=== PATIENT | male | born 1975 | race Hispanic/Latino ===

== ENCOUNTER 2021-11-13 15:29 | Emergency (ER) | payer OTHER ==
[~2021-11-13] VITALS: Ht 177.8 cm; Wt 83.9 kg
[~2021-11-13 15:29] MED LIST: TAMS-1 PO; TYL3B PO; no medications
[2021-11-13] MEDS ORDERED: KETOROLAC 30MG VIAL (30MG/ML) IM ONE (16:00)
[2021-11-13 20:00] VITALS: BP 139/88
== END 2021-11-13 19:59 | disposition home or self-care (01) ==
LOC: EDH 15:29
DX: S93.602A Unspecified sprain of left foot, initial encounter (principal); X58.XXXA Exposure to other specified factors, initial encounter; Y93.89 Activity, other specified; Y92.89 Other specified places as the place of occurrence of the external cause; Y99.8 Other external cause status
CPT/HCPCS: 73630; 96372; 99283; J1885

== ENCOUNTER 2025-03-31 03:31 | Observation (INO) | payer OTHER ==
[~2025-03-31] VITALS: Ht 177.8 cm; Wt 90.7 kg
[2025-03-31] MEDS: LACTATED RINGERS 1000ML 1,000 ML IV ONE (03:49)
[2025-03-31 03:52] LABS: IMMATURE GRANULOCYTE ABSOLUTE 0.01 K/uL (0-1); NUCLEATED RED BLOOD CELLS 0.0 % (0.0-0.19); PLATELET COUNT (AUTO) 207 K/uL (130-400); RED BLOOD CELL COUNT(AUTO) 6.04 MIL/uL (4.50-6.20); RED CELL DISTRIBUTION WIDTH 15.1 % (11.0-15.5); WHITE BLOOD COUNT (AUTO) 6.5 K/uL (4.8-10.8)
--- NOTE | 2025-03-31 03:52 | ERN ---
ED Note History of Present Illness Stated Complaint: C/O LEFT FLANK PAIN Chief Complaint: Flank Pain Time Seen by MD: 03:34 Dictation: This is a 50-year-old male with known history of nephrolithiasis comes into the emergency room with severe left flank pain that started about an hour ago. He stated that he was profusely sweaty with a excruciating left-sided pain and he knew similar kind of pain with his previous kidney stones and hence came in for evaluation. No fever chills or rigors. No obvious hematuria. He has had kidney stone since 2014 and 1 such episode required surgical intervention and retrieval of the stones Temperature 96 pulse 83 respirations 20 blood pressure 142/99 with a pulse oximetry of 97% on room air Previous problems include history of lumbar fusion and kidney stones Allergies: Coded Allergies: No Known Allergies (Unverified Allergy, Unknown, 06/22/14) Home Meds Active Scripts Tamsulosin HCl (Flomax) 0.4 Mg Cap.er.24h, 1 CAP PO DAILY for 10 Days, #10 CAP 0 Refills Prov:KANDI GALLO MD 03/31/25 Acetaminophen with Codeine (Acetaminophen with Codeine #3 Tablet) 1 Tab Tab, 1-2 TAB PO [id number], #25 TAB Prov:JESE HERNANDEZ MD 06/25/14 Tamsulosin HCl (Flomax) 0.4 Mg/Cap Cap.er.24h, 0.4 MG PO DAILY, #30 CAPSULE.DR Prov:JESE HERNANDEZ MD 06/25/14 Reported Medications [no medications] No Conflict Check 06/22/14 Past Medical History Past Medical History: Other Additional Past Medical Hx: HX OF KIDNEY STONES Surgical History: Other Surgical History Other: LUMBAR FUSION Family History: Negative RN Note Reviewed/Agreed w/PFSH: Yes Review of System Dictation Constitutional: Negative for fever,chills, and weight loss Eyes: Negative for injury, pain,redness, and discharge ENT: Negative for injury,pain or swelling Cardiovascular: Negative for chest pain, palpitations, and edema Respiratory: Negative for shortness of breath, cough, and wheezing, Abdomen/GI: Negative for abdominal pain, nausea, vomiting, diarrhea, and constipation Back: Negative for injury and pain : Negative for injury, bleeding and discharge positive for left flank pain MS/Extremity: Negative for injury and deformity Skin: Negative for rash, and discoloration Neuro: Negative for headache, weakness, numbness, tingling, and seizure Psych: Negative for suicide ideation, homicidal ideation, and hallucinations Initial Vital Sign VS Vital Signs Date Time Temp Pulse Resp B/P (MAP) Pulse Ox O2 Delivery O2 Flow Rate FiO2 03/31/25 03:32 96.1 83 20 142/99 97 Room Air 03/31/25 06:35 0 21 Physical Exam Dictation General: awake, alert, NAD Head/Face: Normocephalic, atraumatic Eyes: PERRL, EOMI, vision at baseline ENT: oral cavity clear, TMs clear, no signs of infection Neck: Trachea midline, supple, no nuchal rigidity Cardiovascular: RRR, normal S1/S2, No MRGs, no JVD Respiratory: CTAB, no respiratory distress, No rales or wheezes Abdomen: Soft, non-tender, non-distended, normal bowel sounds, no guarding or rebound. Skin: Warm, dry, normal turgor, no rash MS/Extremity: Pulses equal, no cyanosis, neurovascular intact, FROM Neuro: COAx4, GCS 15, strength 5/5, CN 2-12 intact, normal cerebellar exam, normal gait, Psych: Normal behavior, mood, and affect normal Extremities-trace edema without any palpable cords, Homans sign is negative Results (Laboratory/Radiology) Laboratory/Radiology Laboratory Tests Test 03/31/25 03:46 03/31/25 05:55 White Blood Count 6.5 K/uL (4.8-10.8) Red Blood Count 6.04 MIL/uL (4.50-6.20) Hemoglobin 15.0 g/dL (14.0-18.0) Hematocrit 47.5 % (42-54) Mean Corpuscular Volume 78.6 fL (79-99) L Mean Corpuscular Hemoglobin 24.8 pg (27.0-33.0) L Mean Corpuscular Hemoglobin Concent 31.6 g/dL (32.0-36.0) L Red Cell Distribution Width 15.1 % (11.0-15.5) Platelet Count 207 K/uL (130-400) Mean Platelet Volume 10.7 fL (7.5-10.5) H Immature Granulocyte % (Auto) 0.2 % (0-1) Neutrophils (%) (Auto) 53.7 % (40.0-77.0) Lymphocytes (%) (Auto) 29.1 % (21.0-51.0) Monocytes (%) (Auto) 11.0 % (3.0-13.0) Eosinophils (%) (Auto) 5.1 % (0.0-8.0) Basophils (%) (Auto) 0.9 % (0.0-5.0) Neutrophils # (Auto) 3.5 K/uL (1.8-7.7) Lymphocytes # (Auto) 1.9 K/uL (1.0-4.8) Monocytes # (Auto) 0.7 K/uL (0.1-1.0) Eosinophils # (Auto) 0.33 K/uL (0.00-0.70) Basophils # (Auto) 0.06 K/uL (0.00-0.20) Absolute Immature Granulocyte (auto 0.01 K/uL (0-1) Nucleated Red Blood Cells 0.0 % (0.0-0.19) Red Blood Cell Morphology See comments Sodium Level 140 mmol/L (136-145) Potassium Level 3.9 mmol/L (3.5-5.1) Chloride Level 105 mmol/L (101-111) Carbon Dioxide Level 26 mmol/L (21-32) Blood Urea Nitrogen 18 mg/dL (7-18) Creatinine 1.3 mg/dL (0.5-1.3) Glomerular Filtration Rate Calc 67 mL/min (>90) Random Glucose 142 mg/dL (70-105) H Total Calcium 8.9 mg/dL (8.5-10.1) Urine Color COLORLESS (YELLOW) Urine Appearance CLEAR (CLEAR) Urine pH 6.0 (5.0-8.0) Urine Specific [place] 1.015 (1.001-1.031) Urine Protein NEGATIVE mg/dL (NEGATIVE) Urine Glucose (UA) NEGATIVE mg/dL (NEGATIVE) Urine Ketones NEGATIVE mg/dL (NEGATIVE) Urine Occult Blood LARGE (NEGATIVE) H Urine Nitrate NEGATIVE (NEGATIVE) Urine Bilirubin NEGATIVE mg/dL (NEGATIVE) Urine Urobilinogen 0.2 mg/dL (0.2-1.0) Urine Leukocyte Esterase NEGATIVE [place]/uL Urine RBC 51-100 /HPF (0-1) H Urine WBC 0-1 /HPF (0-1) Urine Bacteria None /HPF (None Seen) Labs Reviewed?: Yes CT Scan Comment: REASON: renal colic left side? ORDERING PHYSICIAN: KANDI GALLO MD PROCEDURE: ABD PELVWO - CT ABD/PEL WO CON RENAL/APPY EXAM: CT Abdomen and Pelvis without IV contrast CLINICAL HISTORY: Renal colic on the left side. TECHNIQUE: Thin collimated axial CT images of the abdomen and pelvis were obtained, with sagittal and coronal reformatted images also submitted. A CT scan is done according to ALARA (As Low As Reasonably Achievable). CONTRAST: None. COMPARISON: CT abdominal pelvis dated 06/24/2014. FINDINGS: Unremarkable visualized lung parenchyma. No focal abnormality within the gallbladder, pancreas, spleen, or adrenals. 0.6 cm hypodense cystic structure in segment 6 of the liver. There are a few nonobstructive renal calculi bilaterally, the largest measures up to 0.4 cm around the left renal midpole. 0.3 cm calculus around the distal third of the left ureter with subtle fullness in the left ureter and renal collecting system proximal to this calculus. There is no obvious bowel wall thickening. Bowel loops are normal in caliber without obstruction or ileus. The appendix is normal. There is no abnormality within the urinary bladder. Unremarkable reproductive organs. Limited evaluation of the abdominal vessels due to the lack of intravenous contrast. No abdominal aortic aneurysm is evident. There is a 1.4 x 1.5 cm enlarged retroperitoneal lymph node posterior to the inferior vena cava at the level of the right renal vein. No free fluid. No pneumoperitoneum. There is no acute osseous abnormality. Degenerative osseous changes. Postsurgical changes, posterior fixation hardware, and an intervertebral disc spacer at L4-L5. Small, uncomplicated, fat-containing inguinal hernias bilaterally. IMPRESSIONS: 0.3 cm calculus around the distal third of the left ureter with subtle fullness in the left ureter and renal collecting system proximal to this calculus. This is a new finding compared to the previous CT. There are a few non-obstructive renal calculi bilaterally. Interval decrease in size of the renal calculi but an increase in the number of the renal calculi compared to the previous CT dated 06/24/2014. 0.6 cm hypodense cystic structure in segment 6 of the liver. A new finding. There is a 1.4 x 1.5 cm enlarged retroperitoneal lymph node posterior to the inferior vena cava at the level of the right renal vein. It is unchanged compared to the previous CT. Small, uncomplicated, fat-containing inguinal hernias bilaterally with interval worsening /[place] DICTATED BY: JULIANNE JAFFE Jr., MD DATE: 03/31/25538 ELECTRONICALLY SIGNED BY: JULIANNE JAFFE Jr., MD ED Course ED Course Orders Procedure Category Date Status Time Vital Signs Per CPOE 03/31/25 Transmitted Routine 03:35 Strain All Urine CPOE 03/31/25 Transmitted Output From 03:35 Cbc With Differential LAB 03/31/25 Complete 03:35 Saline Lock Iv CPOE 03/31/25 Transmitted 03:35 Basic Metabolic Panel LAB 03/31/25 Complete 03:35 Urinalysis Profile LAB 03/31/25 Complete 03:35 Lactated Ringers PHA 03/31/25 Complete 1000ml (Lactated 04:00 Ketorolac PHA 03/31/25 Complete Tromethamine 30mg/Ml 04:00 Ondansetron 4mg Inj PHA 03/31/25 Complete (Zofran 4mg Inj) 04:00 Ct Abd/Pel Wo Con CT 03/31/25 Resulted Renal/Appy 03:47 Hydromorphone 0.5mg PHA 03/31/25 Complete Syg (Dilaudid 0.5mg 06:30 0.9%Nacl 1000ml (Ns PHA 03/31/25 Complete 1000ml) 07:30 Current Medications Medications (Trade) Dose Ordered Sig/Luz Elena Route PRN Reason Start Time Stop Time Status Last Admin Dose Admin Hydromorphone HCl (DiLAUDid 0.5MG INJ) 0.5 mg ONCE ONCE IVP 03/31/25 06:30 03/31/25 06:31 DC 03/31/25 06:09 Ketorolac Tromethamine (toRADol) 30 mg ONCE ONCE IVP 03/31/25 04:00 03/31/25 04:01 DC 03/31/25 03:49 Lactated Ringer's 1,000 ml @ 0 mls/hr ONCE ONCE IV 03/31/25 04:00 03/31/25 04:01 DC 03/31/25 03:49 Ondansetron HCl (zoFRAN 4MG INJ) 4 mg ONCE ONCE IVP 03/31/25 04:00 03/31/25 04:01 DC 03/31/25 03:49 Sodium Chloride 1,000 ml @ 0 mls/hr ONCE ONCE IV 03/31/25 07:30 03/31/25 07:31 DC Vital Signs Date Time Temp Pulse Resp B/P (MAP) Pulse Ox O2 Delivery O2 Flow Rate FiO2 03/31/25 06:35 98.1 80 18 136/85 99 Room Air* 0 21 03/31/25 03:32 96.1 83 20 142/99 97 Room Air We will perform diagnostic labs, advanced imaging and administer medications according to the patient's complaint. Once the results are available, will review and personally interpreted the labs to rule out any acute life- threatening emergency the trach require immediate intervention and treatment. I will then re-evaluate the patient after treatment and diagnostic exams have return to determine whether the patient requires any further testing, can safely be discharged home or need further admission to hospital for additional treatment and evaluation. Medical Decision Making MDM Differential diagnosis: Renal colic, pyelonephritis, lumbago, diverticulitis, constipation This is a 50-year-old male with known history of nephrolithiasis comes into the emergency room with severe left flank pain that started about an hour ago. He stated that he was profusely sweaty with a excruciating left-sided pain and he knew similar kind of pain with his previous kidney stones and hence came in for evaluation. No fever chills or rigors. No obvious hematuria. He has had kidney stone since 2014 and 1 such episode required surgical intervention and retrieval of the stones Temperature 96 pulse 83 respirations 20 blood pressure 142/99 with a pulse oximetry of 97% on room air Previous problems include history of lumbar fusion and kidney stones 4:34 a.m. labs reviewed CBC is with a normal limits except for MCV of 79. BNP 7 is significant for a BUN and creatinine of 18 and 1.3. 4:[address] scan of the abdomen and pelvis was requested for evaluation of any hydronephrosis or hydroureter. 4:[address] scan of the abdomen and pelvis reviewed.-patient has a 0.3 cm calcu eddie in the mid left ureter with some mild swelling but no obvious hydronephrosis or hydroureter. I updated the patient on the CT findings and he admits to some improvement with a dose of Toradol. 6:30 a.m. patient's pain returned. I explained to him that in view of his creatinine being 1.3, we will give an opioid pain medicine. Patient will be monitored in the ER and upon reassessment if he continues to have pain, he will be admitted for pain control. Patient is agreeable Rationale: Tests considered and ordered secondary to shared decision making include: Previous outside records reviewed: Old ER visits. Risk of complication and/or morbidity or mortality of patient management: None Medications-Per medication reconciliation Need for hospitalization: Patient does not meet criteria for hospitalization. Need for emergency major/minor surgery: No There are no social concerns with this patient. Prescription drug management Prescriptions will include symptomatic care Patient's prior external medical records from other ER visits were reviewed by me as indicated. Prior testing and results from previous visits were reviewed. Prior tests were taken into account with medical decision making and resource utilization, independent historian/historians were used to obtain complete medical history. I independently interpreted the test that were performed, results were reviewed by me and considered findings on radiology if ordered. Medical management and examination interpretation discussions were had by me with other qualified healthcare professionals as indicated for the patient's care. Patient will be admitted under the care of hospitalist group for Problem List Problem List: (1) Renal colic on left side (2) Nephrolithiasis DX & DISP Disposition: Inpatient Decision to Admit Time: 07:37 Departure Impression: Primary Impression: Renal colic on left side Additional Impression: Nephrolithiasis Condition: Stable Scripts Tamsulosin HCl (Flomax) 0.4 Mg Cap.er.24h 1 CAP PO DAILY for 10 Days, #10 CAP 0 Refills Prov: KANDI GALLO MD 03/31/25 Additional Instructions: Patient and the caregiver have been informed of all the diagnostic tests and the imaging conducted during the today's visit to the emergency room and has verbalized understanding of the results I have personally reviewed and interpreted all diagnostic exams performed here in the ER today as well as the vital signs documented by the nursing staff. The patient is now being discharged to home and should follow up with the primary care physician or the specialist as directed by the ER staff. Follow-up with primary care provider in 1 to 2 days. Take medications as directed here in the emergency room. Okay to continue home medications unless otherwise discussed during your visit in the emergency room today. Return to your nearest emergency room if symptoms worsen or if there is no improvement. Call 911 if you need immediate assistance. Take Tylenol or Motrin [id number] as needed and if no contraindications are present. Increase oral hydration. A wound culture or urine culture was ordered here in the emergency room department please follow-up with primary care provider and advise them to get repeat ports from our facility. If you had any Armand wrap/splints that were applied here, please do not remove them until you see your primary care or specialty. Referrals: CECY LOWE (PCP) KANDI GALLO MD Mar 31, 2025 03:52 EVELIO LUTHER MD Mar 31, 2025 07:37
[2025-03-31 04:00] LABS: CREATININE 1.3 mg/dL (0.5-1.3); GLOMERULAR FILTR. RATE CALC 67.0 mL/min (>90); GLUCOSE,RANDOM 142.0 mg/dL (70-105); SODIUM SERUM 140.0 mmol/L (136-145); UREA NITROGEN, BLOOD 18.0 mg/dL (7-18)
--- NOTE | 2025-03-31 04:40 | HMCIMG ---
EXAM: CT Abdomen and Pelvis without IV contrast CLINICAL HISTORY: Renal colic on the left side. TECHNIQUE: Thin collimated axial CT images of the abdomen and pelvis were obtained, with sagittal and coronal reformatted images also submitted. A CT scan is done according to ALARA (As Low As Reasonably Achievable). CONTRAST: None. COMPARISON: CT abdominal pelvis dated 06/24/2014. FINDINGS: Unremarkable visualized lung parenchyma. No focal abnormality within the gallbladder, pancreas, spleen, or adrenals. 0.6 cm hypodense cystic structure in segment 6 of the liver. There are a few nonobstructive renal calculi bilaterally, the largest measures up to 0.4 cm around the left renal midpole. 0.3 cm calculus around the distal third of the left ureter with subtle fullness in the left ureter and renal collecting system proximal to this calculus. There is no obvious bowel wall thickening. Bowel loops are normal in caliber without obstruction or ileus. The appendix is normal. There is no abnormality within the urinary bladder. Unremarkable reproductive organs. Limited evaluation of the abdominal vessels due to the lack of intravenous contrast. No abdominal aortic aneurysm is evident. There is a 1.4 x 1.5 cm enlarged retroperitoneal lymph node posterior to the inferior vena cava at the level of the right renal vein. No free fluid. No pneumoperitoneum. There is no acute osseous abnormality. Degenerative osseous changes. Postsurgical changes, posterior fixation hardware, and an intervertebral disc spacer at L4-L5. Small, uncomplicated, fat-containing inguinal hernias bilaterally. IMPRESSIONS: 0.3 cm calculus around the distal third of the left ureter with subtle fullness in the left ureter and renal collecting system proximal to this calculus. This is a new finding compared to the previous CT. There are a few non-obstructive renal calculi bilaterally. Interval decrease in size of the renal calculi but an increase in the number of the renal calculi compared to the previous CT dated 06/24/2014. 0.6 cm hypodense cystic structure in segment 6 of the liver. A new finding. There is a 1.4 x 1.5 cm enlarged retroperitoneal lymph node posterior to the inferior vena cava at the level of the right renal vein. It is unchanged compared to the previous CT. Small, uncomplicated, fat-containing inguinal hernias bilaterally with interval worsening /[place]
[2025-03-31 06:10] LABS: APPEARANCE,URINE CLEAR (CLEAR); GLUCOSE, URINE (UA) NEGATIVE (NEGATIVE); LEUKOCYTE ESTERASE ,URINE NEGATIVE Leu/uL (NEGATIVE); NITRATE,URINE NEGATIVE (NEGATIVE); OCCULT BLOOD,URINE LARGE (NEGATIVE)
[2025-03-31 06:11] LABS: ADD UA MICROSCOPIC YES
[2025-03-31] MEDS ORDERED: TAMS-55 PO (07:06)
--- NOTE | 2025-03-31 08:00 | HP ---
[facility] HISTORY AND PHYSICAL Date of Service: Mar 31, 2025 Time of Service: 07:52 HISTORY OF PRESENT ILLNESS: [The patient is a 50-year-old male with a known history of nephrolithiasis who presented to the emergency department with acute onset of severe, excruciating left flank pain that began a few hours prior to admission. He reports associated profuse sweating but denies fever, chills, or hematuria. The patient states that the pain is similar to previous episodes of kidney stones, with his last episode in 2014, one of which required surgical intervention. No dysuria, nausea, or vomiting reported. ] REVIEW OF SYSTEMS CONSTITUTIONAL: Denies fevers, chills, or night sweats. No unintentional weight loss reported. NEUROLOGICAL: Denies headache, amaurosis fugax, motor weakness, sensory deficit, vertigo/spinning sensation, gait abnormalities, or tremors. ENT: No hearing loss, otalgia, otorrhea, rhinitis, rhinorrhea, hoarseness, or sore throat. CARDIOVASCULAR: Denies any exertional angina, dyspnea on exertion, orthopnea, paroxysmal nocturnal dyspnea, palpitations, life-threatening arrhythmias, claudication. PULMONARY: Denies any shortness of breath, cough, phlegm/sputum, hemoptysis, pleuritic chest pain. SLEEP: Denies morning headaches, daytime somnolence or napping. Denies difficulty falling asleep, staying asleep, waking from sleep. Denies knowledge of snoring. GASTROINTESTINAL: Denies any type of dysphagia to either liquids or solids. Denies nausea, vomiting, pyrosis, early satiety, abdominal pain, diarrhea, constipation, or changes in stool consistency or caliber. Denies coffee-ground emesis, hematemesis, hematochezia, or melanotic stools. GENITOURINARY: Denies frequency, urgency, nocturia, hematuria or incontinence (Storage/Irritative symptoms.) Low urinary stream, straining to void, urinary intermittency or hesitancy, splitting of the voiding stream, terminal dribbling. ENDOCRINOLOGIC: Denies polyuria, polydipsia, polyphagia or heat/cold intolerances. HEMATOLOGIC: Denies thrombophilia/previous clots, or coagulopathy/bleeding disorders. ONCOLOGIC: Denies personal history of malignancy. DERMATOLOGIC: Denies rashes or pruritus. PSYCHIATRIC: Denies any suicidal or homicidal ideation. Denies hallucinations. PAST MEDICAL HISTORY: [ Nephrolithiasis (last episode 2014, one required surgical intervention) ] PAST SURGICAL HISTORY: [ Lithotripsy ] PAST SOCIAL HISTORY: [Denies tobacco, alcohol or illicit drug use ] FAMILY HISTORY: [Diabetes, nephrolithiasis ] Coded Allergies: No Known Allergies (Unverified Allergy, Unknown, 06/22/14) PHYSICAL EXAM GENERAL APPEARANCE: The patient is awake, alert, and oriented, in no acute cardiopulmonary distress. NEUROLOGICAL: Cranial nerves II-XII grossly intact. Motor is 5/5 in bilateral upper and lower extremities proximal to distal. No sensory deficits. HEENT: Face is symmetric. Pupils are equal and reactive. Extraocular movements are intact. NECK: Supple. No JVD. No thyromegaly. No submental, submandibular, pre- /postauricular, occipital or supraclavicular lymphadenopathy. CHEST: Normal chest expansion. No Telemetry. LUNGS: Absence of any rales, rhonchi or any wheezing. CARDIOVASCULAR: Regular. S1 and S2 normal. No appreciable rubs, murmurs or gallops. ABDOMEN: Soft, nontender, and nondistended. There is no rebound, voluntary guarding, or rigidity. : Deferred. No [place]. EXTREMITIES: Non-edematous and not cyanotic. No clubbing. Good capillary r efill. SKIN: No skin breakdown. Vital Sign (Last 24 Hours) 03/31/25 06:35 Temp 98.1 Pulse 80 Resp 18 B/P (MAP) 136/85 Pulse Ox 99 O2 Delivery Room Air* O2 Flow Rate 0 FiO2 21 LABS: Laboratory: Test 03/31/25 05:55 03/31/25 03:46 Range/Units Urine Color COLORLESS YELLOW Urine Appearance CLEAR CLEAR Urine pH 6.0 5.0-8.0 Urine Specific [place] 1.015 1.001-1.031 Urine Protein NEGATIVE NEGATIVE mg/dL Urine Glucose (UA) NEGATIVE NEGATIVE mg/dL Urine Ketones NEGATIVE NEGATIVE mg/dL Urine Occult Blood LARGE H NEGATIVE Urine Nitrate NEGATIVE NEGATIVE Urine Bilirubin NEGATIVE NEGATIVE mg/dL Urine Urobilinogen 0.2 0.2-1.0 mg/dL Urine Leukocyte Esterase NEGATIVE NEGATIVE Britney/uL Urine RBC 51-100 H 0-1 /HPF Urine WBC 0-1 0-1 /HPF Urine Bacteria None None Seen /HPF White Blood Count 6.5 4.8-10.8 K/uL Red Blood Count 6.04 4.50-6.20 MIL/uL Hemoglobin 15.0 14.0-18.0 g/dL Hematocrit 47.5 42-54 % Mean Corpuscular Volume 78.6 L 79-99 fL Mean Corpuscular Hemoglobin 24.8 L 27.0-33.0 pg Mean Corpuscular Hemoglobin Concent 31.6 L 32.0-36.0 g/dL Red Cell Distribution Width 15.1 11.0-15.5 % Platelet Count 207 130-400 K/uL Mean Platelet Volume 10.7 H 7.5-10.5 fL Immature Granulocyte % (Auto) 0.2 0-1 % Neutrophils (%) (Auto) 53.7 40.0-77.0 % Lymphocytes (%) (Auto) 29.1 21.0-51.0 % Monocytes (%) (Auto) 11.0 3.0-13.0 % Eosinophils (%) (Auto) 5.1 0.0-8.0 % Basophils (%) (Auto) 0.9 0.0-5.0 % Neutrophils # (Auto) 3.5 1.8-7.7 K/uL Lymphocytes # (Auto) 1.9 1.0-4.8 K/uL Monocytes # (Auto) 0.7 0.1-1.0 K/uL Eosinophils # (Auto) 0.33 0.00-0.70 K/uL Basophils # (Auto) 0.06 0.00-0.20 K/uL Absolute Immature Granulocyte (auto 0.01 0-1 K/uL Nucleated Red Blood Cells 0.0 0.0-0.19 % Red Blood Cell Morphology See comments Sodium Level 140 136-145 mmol/L Potassium Level 3.9 3.5-5.1 mmol/L Chloride Level 105 101-111 mmol/L Carbon Dioxide Level 26 21-32 mmol/L Blood Urea Nitrogen 18 7-18 mg/dL Creatinine 1.3 0.5-1.3 mg/dL Glomerular Filtration Rate Calc 67 >90 mL/min Random Glucose 142 H 70-105 mg/dL Total Calcium 8.9 8.5-10.1 mg/dL DIAGNOSTICS / RADIOLOGY: [Imaging: CT Abdomen/Pelvis (non-contrast): 0.3 cm calculus in the distal third of the left ureter with subtle fullness in the left ureter and renal collecting system proximal to the calculus (new finding compared to previous CT). Multiple non-obstructive renal calculi bilaterally; interval decrease in size but increase in number compared to CT from 06/24/2014. 0.6 cm hypodense cystic structure in segment 6 of the liver (new finding). 1.4 x 1.5 cm enlarged retroperitoneal lymph node posterior to the IVC at the level of the right renal vein (unchanged from previous CT). Small, uncomplicated, fat-containing inguinal hernias bilaterally with interval worsening. ] ASSESSMENT: [Left distal ureteral stone (0.3 cm) with mild upstream fullness, POA Bilateral kidney stones (non-obstructive), POA Mild left hydronephrosis, POA Indeterminate small hepatic lesion (segment 6), POA Stable retroperitoneal lymph node enlargement, POA Bilateral uncomplicated inguinal hernias (progressed), POA Intractable pain, POA PLAN: [Disposition * Admit to medical-surgical floor for monitoring and supportive management. Diet * Regular diet as tolerated. * NPO if nausea/vomiting develops or if surgical/urologic intervention is anticipated. Fluids * Start IV fluids: Normal Saline 0.9% at 150 mL/hr (to promote diuresis and facilitate stone passage). Pain Control * IV or PO NSAIDs (e.g., ketorolac IV if renal function is normal) as first- line. * Opioids PRN for breakthrough pain not controlled with NSAIDs. Antiemetics * Ondansetron 4 mg IV/PO q68h PRN nausea. Monitoring * Strict intake & output (document urine output, monitor for passage of stone). * Monitor renal function (BMP daily, creatinine, BUN, electrolytes). * Monitor for fever, worsening pain, or anuria (signs of obstruction/infection). Urology * Urology consult for evaluation if pain does not improve: stone is small (0.3 cm) and may pass spontaneously, but obstruction needs close monitoring. * Possible intervention if pain is uncontrolled, renal function worsens, or obstruction persists. Labs / Imaging * Baseline: CBC, CMP, urinalysis, urine culture. * Repeat renal ultrasound or CT if no improvement or if condition worsens. Other Findings (from CT) * Inguinal hernias: Uncomplicated; outpatient general surgery follow-up. * Liver hypodensity: Consider outpatient follow-up imaging (ultrasound/MRI). * Stable retroperitoneal node: Outpatient surveillance; no acute intervention. ] Supportive care * GI with Pepcid 20 mg b.i.d. and DVT prophylaxis, SCD (patient this is ambulatory and young) * Prn medications for nausea vomiting, pain fever Patient is a full code Case seen and discussed plan with Dr. Garcia, above plan was formulated ADVANCED CARE PLANNING 1. Which of the following were discussed? Hospice Care - Yes / No Therapeutic options - Yes / No Advance Directives - Yes / No Other discussions - 2. Discussed with who? Patient 3. Voluntary nature of this service was explained to the patient? Yes / No 4. Amount of time spent - ___20 mins____ 5. Reviewed by Physician? (if this service was performed by NPP) Yes / No ATTESTATION BY PHYSICIAN I have seen and examined the patient. I reviewed the documentation, medical decision making, and treatment plan as noted by the mid-level provider above. I agree with the findings and plan of care. Maribel Garcia MD, [facility] Mar 31, 2025 08:00
[2025-03-31] MEDS: 0.9%NACL 1000ML 1,000 ML IV ONE (08:56)
--- NOTE | 2025-03-31 13:42 | NUR ---
PAGED HOSPITALIST FOR PAIN MEDICATIONS PATIENT COMPLAINING OF PAIN
--- NOTE | 2025-03-31 14:04 | NUR ---
DCP:HOME Pt currently lives with his sps Donna Guardado [phone]. Pt does not have any DME, home health, or provider services. Pt does have a CPAP. Pt states that he is able to complete ADLs independently. PCP is Dr. Carpio from [facility] and uses the [facility] for any RX needs. At [place] pt will want to go home and family can assist with transportation. Addendum: 03/31/25 at 1407 by GINA VALADEZ SS Amended: Links added.
[2025-03-31 17:56] VITALS: O2SAT 97
[2025-03-31 20:00] VITALS: BP 128/86; PULSE 70; RESP 20; TEMP 98.7; O2SAT 100
[2025-03-31 23:52] VITALS: BP 117/74; PULSE 97; RESP 18; TEMP 97.9
[2025-04-01 03:34] VITALS: BP 135/88; PULSE 90; RESP 20; TEMP 97.8
[2025-04-01 03:38] LABS: NUCLEATED RED BLOOD CELLS 0.0 % (0.0-0.19); PLATELET COUNT (AUTO) 210.0 K/uL (130-400); RED BLOOD CELL COUNT(AUTO) 5.94 MIL/uL (4.50-6.20); RED CELL DISTRIBUTION WIDTH 15.3 % (11.0-15.5); WHITE BLOOD COUNT (AUTO) 10.5 K/uL (4.8-10.8)
[2025-04-01 03:49] LABS: CREATININE 2.1 mg/dL (0.5-1.3); GLOMERULAR FILTR. RATE CALC 38.0 mL/min (>90); GLUCOSE,RANDOM 132.0 mg/dL (70-105); SODIUM SERUM 139.0 mmol/L (136-145); UREA NITROGEN, BLOOD 19.0 mg/dL (7-18)
--- NOTE | 2025-04-01 05:55 | NUR ---
PATIENT STRAINED LARGE KIDNEY STONE PATIENT SHOWED CURRENT DOCUMENTER LARGE KIDNEY STONE IN STRAINED URINE, 600 CC OF CLEAR YELLOW URINE IN URINAL. PATIENT VERBALIZES RELIEF OF PAIN. PATIENT SITTING ON EDGE OF BED, PLEASANT AFFECT AT THIS TIME. CALL LIGHT IN REACH OF PATIENT.
[2025-04-01 07:36] VITALS: BP_SYST 120; BP_SYST 136; BP_DIAS 78; BP_DIAS 82; PULSE 86; RESP 16; TEMP 98.1
--- NOTE | 2025-04-01 09:54 | DS ---
Discharge Summary Hospital Course Summary: Reason for Admission: Acute onset of severe left flank pain in a patient with a known history of nephrolithiasis. History of Present Illness: The patient is a 50-year-old male with a history of nephrolithiasis who presented to the emergency department with acute, severe, excruciating left flank pain that began a few hours prior to admission. He reported associated profuse sweating but denied fever, chills, hematuria, dysuria, nausea, or vomiting. The pain was similar to previous episodes of kidney stones, with his last episode in 2014, one of which required surgical intervention. Hospital Course: During his overnight stay, the patient passed a kidney stone spontaneously. He became asymptomatic following passage of the stone. He remained hemodynamically stable throughout his stay, with no recurrence of pain or other symptoms. Discharge Condition: The patient is currently asymptomatic and stable for discharge. Discharge Medications: Flomax (tamsulosin) 0.4 mg orally once daily for 10 days or as needed Discharge Instructions: Monitor for recurrence of pain, hematuria, fever, or other concerning symptoms. Maintain adequate oral hydration. Take Flomax as prescribed. Follow up with primary care provider (PCP) in 23 days for further evaluation and management. Follow-Up: PCP follow-up in 23 days Follow up with Urology in 1- week Assessment/Plan: Discharge Diagnoses: Nephrolithiasis, left kidney (acute episode, resolved) Renal colic, resolved Admitting Diagnoses [Left distal ureteral stone (0.3 cm) with mild upstream fullness, POA Bilateral kidney stones (non-obstructive), POA Mild left hydronephrosis, POA Indeterminate small hepatic lesion (segment 6), POA Stable retroperitoneal lymph node enlargement, POA Bilateral uncomplicated inguinal hernias (progressed), POA Intractable pain, POA Home Medications: Active Scripts Tamsulosin HCl (Flomax) 0.4 Mg Cap.er.24h, 1 CAP PO DAILY for 10 Days, #10 CAP 0 Refills Prov:KANDI GALLO MD 03/31/25 Discontinued Reported Medications [no medications] No Conflict Check 06/22/14 Discontinued Scripts Acetaminophen with Codeine (Acetaminophen with Codeine #3 Tablet) 1 Tab Tab, 1-2 TAB PO [id number], #25 TAB Prov:JESE HERNANDEZ MD 06/25/14 Tamsulosin HCl (Flomax) 0.4 Mg/Cap Cap.er.24h, 0.4 MG PO DAILY, #30 CAPSULE.DR Prov:JESE HERNANDEZ MD 06/25/14 Time spent arranging discharge: 31-60 minutes ATTESTATION BY PHYSICIAN I have seen and examined the patient. I reviewed the documentation, medical decision making, and treatment plan as noted by the mid-level provider above. I agree with the findings and plan of care. Maribel Garcia MD, [facility] Apr 01, 2025 09:54
[2025-04-01 10:10] VITALS: O2SAT 95
--- NOTE | 2025-04-01 11:21 | NUR ---
Pt. and present at bedside given discharge instructions, both parties verbalized understanding. All questions answered. 18g peripheral IV removed from pt's Right A/C, manual pressure applied and hemostasis achieved. IV site covered with gauze and tape--no oozing, bruising, or hematoma noted. Pt. discharged to private vehicle via w/c--no acute distress noted.
== END 2025-04-01 11:21 | disposition home or self-care (01) ==
LOC: EDH 03:31 → EDHIP 07:37 → 1MS 17:56
PROVIDERS: ADMIT Hospitalist; ATTEND Hospitalist
DX: N13.2 Hydronephrosis with renal and ureteral calculous obstruction (principal); K40.20 Bilateral inguinal hernia, without obstruction or gangrene, not specified as recurrent; K76.9 Liver disease, unspecified; R59.0 Localized enlarged lymph nodes; Z79.899 Other long term (current) drug therapy; Z98.890 Other specified postprocedural states
CPT/HCPCS: 96374; 96376 ×2; 96361; 96375; 99285; 80048 ×2; 85025; 81001; 36415 ×2; 74176; 85027; G0378 ×28; J7120; J7030; J2405 ×2; J2270 ×2; J1885 ×3; J1171